=== PATIENT | female | born 1995 | race Caucasian/White ===

== ENCOUNTER 2023-08-21 20:04 | Emergency (ER) | payer OTHER, SELFPAY ==
[2023-08-21 20:23] VITALS: BP 135/93; PULSE 101; RESP 14; TEMP 37.1; O2SAT 98
--- NOTE | 2023-08-21 20:54 | ED.GENADULT ---
HPI - General Adult General Chief complaint: Unspecified Stated complaint: lymph node swelling/fever Time Seen by Provider: 08/21/23 20:10 Source: patient Mode of arrival: ambulatory Limitations: no limitations History of Present Illness HPI narrative: Patient is a 28 y/o female who presents to the ED with c/o swollen lymph nodes and fever. Patient reports she has noticed swelling to her lymph nodes, particularly her right sided neck since Wednesday. She then developed swelling and inflammation of her gums throughout the week. She was seen at urgent care yesterday, started on Augmentin for possible dental infection/ abscess. She followed up with her dentist today and was told she did not have a dental abscess. She then developed a sore throat and fever up to 101.1 degree F today. She took ibuprofen prior to arrival. Denies cough or cold symptoms. Denies sick contacts. Denies actual dental pain. Related Data Allergies Allergy/AdvReac Type Severity Reaction Status Date / Time metformin Allergy Gastrointestinal Verified 08/21/23 20:23 Upset sulfamethoxazole Allergy Hives Verified 08/21/23 20:23 [From Bactrim] trimethoprim [From Bactrim] Allergy Hives Verified 08/21/23 20:23 Review of Systems Review of Systems: CONSTITUTIONAL: See HPI. ENT: See HPI CARDIOVASCULAR: Denies chest pain. RESPIRATORY: Denies cough or dyspnea. GASTROINTESTINAL: Denies abdominal pain, nausea, vomiting All systems reviewed & are unremarkable except as noted in HPI and below Exam Narrative: GENERAL: Well appearing, morbidly obese with BMI of 50.9, non-toxic, in no acute distress. HEAD: Normocephalic, atraumatic. ENT: Mild dental disease. No obvious dental abscess. Upper gumline is mildly inflamed/swollen, erythematous. Scattered aphthous ulcers along right upper gum line. No fluctuance. Posterior pharynx is mildly erythematous, worse on right side. Tonsils are not enlarged, no exudate noted. No protrusion of tonsillar bed. Uvula is midline and non edematous. No stridor or trismus. NECK: Mild anterior cervical lymphadenopathy, worse on R. Soft, easily moveable, mildly tender. No posterior cervical lymphadenopathy. RESPIRATORY: Airway patent, respirations nonlabored. Clear to auscultation bilaterally, no rales, rhonchi, wheezing. CARDIOVASCULAR: Borderline tachycardic with regular rhythm without murmurs, rubs, or gallops ABDOMINAL: Soft, nontender, nondistended. Normoactive BS. MUSCULOSKELETAL: Moves all extremities. No gross deformities. SKIN: Warm, dry, normal color. NEURO: A&O X3. Speech clear. PSYCHIATRIC: Appropriate mood and affect. Normal interaction. Course Vital Signs Vital signs: Vital Signs Temperature 98.8 F 08/21/23 20:23 Pulse Rate 101 H 08/21/23 20:23 Respiratory Rate 14 08/21/23 20:23 Blood Pressure 135/93 H 08/21/23 20:23 Pulse Oximetry 98 08/21/23 20:23 Oxygen Delivery Room Air 08/21/23 20:23 Temperature 98.8 F 08/21/23 20:23 Pulse Rate 96 08/21/23 23:01 Respiratory Rate 17 08/21/23 23:01 Blood Pressure 123/74 08/21/23 23:01 Pulse Oximetry 97 08/21/23 23:01 Oxygen Delivery Room Air 08/21/23 20:23 Medical Decision Making [facility] Narrative Medical decision making narrative: Patient presented to the ED with lymphadenopathy, sore throat, fevers, gum inflammation. Patient mildly tachycardic upon arrival. Fluids initiated. Exam without evidence of obvious dental abscess, no fluctuance. She does have aphthous ulcers along right upper gum line. No signs of airway compromise or respiratory distress. No stridor. No features concerning for peritonsillar or retropharyngeal abscess on exam. Patient currently on Augmentin for possible dental infection. Advised patient she can continue this as she does have some degree of dental disease. Will also prescribe magic mouthwash. Recommended salt water rinses. Influenza, COVID, RSV, strep, mono testing negative. discu
[2023-08-21] MEDS: ACETAMINOPHEN 500 MG TABLET 1000 MG PO (21:38)
[2023-08-21 21:43] LABS: Strep Group A RT-PCR NOT DETECTED (Negative)
[2023-08-21 21:53] LABS: Influenza A QL RT-PCR Negative (Negative); Influenza B QL RT-PCR Negative (Negative); RSV RNA, RT-PCR Negative (Negative); SARS-CoV-2 RNA PCR Negative (Negative)
[2023-08-21 21:56] LABS: Monoscreen Negative (Negative); Negative Monotest Control Negative (Negative); Positive Monotest Control Positive (Positive)
[2023-08-21] MEDS: SODIUM CHLORIDE 0.9% IV 1,000 ML 999 ML IV CONT (22:08)
[2023-08-21 22:56] VITALS: BP 141/73; RESP 12; O2SAT 96
[2023-08-21 23:00] VITALS: BP 143/73; PULSE 94; RESP 20; O2SAT 96
[2023-08-21 23:01] VITALS: BP 123/74; PULSE 96; RESP 17; O2SAT 97
== END 2023-08-21 23:29 | disposition home or self-care (01) ==
PROVIDERS: Emergency Provider Physician Assistant
DX: R59.1 Generalized enlarged lymph nodes (principal); B34.9 Viral infection, unspecified; K12.0 Recurrent oral aphthae; Z20.822 Contact with and (suspected) exposure to COVID-19
CPT/HCPCS: 36415; 86308; 87637; 87651; 96360; 99284; A9270; J7030

== ENCOUNTER 2024-04-13 15:25 | Emergency (ER) | payer OTHER, SELFPAY ==
--- NOTE | ~2024-04-13 | XR_ITS ---
EXAM: XR foot LT min 3V DATE: 04/13/2024 15:48 HISTORY: pain dorsal Lt foot . COMPARISON: None available. FINDINGS: Normal mineralization. No fracture or dislocation. No lytic or blastic lesion. Mild degene rative change at the first MTP joint and talonavicular joint. Plantar enthesopathy. No erosion or per iosteal change. Soft tissues within normal limits. IMPRESSION: No acute osseous finding in the left foot. Reviewed, dictated and finalized at location [facility]
[2024-04-13 15:34] VITALS: BP 149/82; PULSE 92; RESP 16; TEMP 36.4; O2SAT 100
--- NOTE | 2024-04-13 16:09 | ED_ITS ---
HPI - Extremity Injury (Lower) General Chief Complaint: Extremity Injury, Lower Stated Complaint: Left Foot Pain Time Seen by Provider: 04/13/24 16:09 Source: patient, RN notes reviewed and old records reviewed Mode of arrival: ambulatory Limitations: no limitations History of Present Illness HPI Narrative: 29-year-old female presents to the [facility] with complaints of left foot pain. Symptoms started Wednesday. States that she was walking and felt a pop in the top of her foot. Tenderness to the distal this 3rd 4th metatarsal Related Data Home Medications ?Medication ?Instructions ?Recorded ?Confirmed ?Last Taken ?Type cholecalciferol (vitamin D3) 50 04/13/24 Unknown History mcg (2,000 unit) capsule cyanocobalamin (vitamin B-12) mcg 04/13/24 Unknown History 1,000 mcg sublingual tablet tirzepatide (weight loss) 5 mg/0.5 mg subcut 04/13/24 Unknown History mL subcutaneous pen injector (Zepbound) Allergies Allergy/AdvReac Type Severity Reaction Status Date / Time metformin Allergy Gastrointestinal Verified 04/13/24 15:34 Upset sulfamethoxazole (From Allergy Hives Verified 04/13/24 15:34 Bactrim) trimethoprim (From Bactrim) Allergy Hives Verified 04/13/24 15:34 Review of Systems 2 Review of Systems: All systems reviewed & are unremarkable except as noted in HPI and below Constitutional: Constitutional: Reports no additional constitutional complaints ENT: Reports system reviewed and no additional complaints, except as documented Cardiovascular: Cardiovascular: Reports no additional cardiovascular complaints, Denies chest pain and Denies dyspnea Respiratory: Respiratory: Reports no additional respiratory complaints, Denies chest congestion, Denies cough and Denies dyspnea Musculoskeletal: Musculoskeletal: Reports as per HPI Integumentary/Breasts: Skin/Breast: Reports system reviewed and no additional complaints, except as docu PMFSH Comments At the time of my signature, I reviewed and agree with the nursing past medical, surgical, social, and family history. There is no relevant family history pertinent to the patient complaint. Exam 2 Const: General: cooperative, healthy appearing, comfortable, no acute distress, well developed, alert and well nourished Nutritional Appearance: w ell nourished Orientation/consciousness: patient oriented x3 Limitations: no limitations HENMT: Head: normal to inspection Eyes: General: appearance normal, both eyes and all related structures A lignment and Position: alignment normal Neck: Neck: normal visual inspection, full ROM, no lymphadenopathy and no meningeal signs Chest: Chest palpation & inspection: normal inspection of the chest Resp: Effort & Inspection: normal respiratory effort and able to speak in complete sentences Cardio: Rate: regular rate Skin: General skin exam: normal color and no rashes or lesions noted Neuro: General: patient oriented x3, gait normal, moves all extremities and no meningeal signs Cognition (Neuro): normal cognition Speech: normal speech Gait exam (Neuro): Normal gait present Extrem: General: normal to inspection, full ROM, capillary refill normal and normal gait Left lower extremity: full ROM, normal capillary refill and foot Details: tenderness Location: of the dorsal foot Location: distally, toes with normal ROM and vascular exam Details: dorsalis pedis pulse present and normal capillary refill Ankle/foot/toe images: 1. Patient reports tenderness and a healing bruise. No swelling noted. No erythema. Psych: Appearance: grossly normal and well kempt Mental Status: mental status grossly normal Speech and movement: Normal speech and movement present and Clear speech present Affect: normal affect Attitude: cooperative Course Course Level of Care: Express Care Visit Vital Signs Vital signs: Vital Signs Temperature 97.5 F L 04/13/24 15:34 Pulse Rate 92 04/13/24 15:34 Respiratory Rate 16 04/13/24 15:34 Blood Pressure 149/82 H 04/13/24 15:34 Pulse Oximetry 100 04/13/24 15:34 Temperature 97.5 F L 04/13/24 15:34 Pulse Rate 92 04/13/24 15:34 Respiratory Rate 16 04/13/24 15:34 Blood Pressure 149/82 H 04/13/24 15:34 Pulse Oximetry 100 04/13/24 15:34 Reviewed MDM - Extremity Injury (Lower) MDM Narrative Medical decision making narrative: Patient sitting in exam room. Nontoxic vitals stable. Patient in no acute distress. Patient presents with 2 day history of left foot pain. X-ray negative. Discussed [id number] treatment, Patient appropriate for outpatient treatment with close follow-up. Podiatry phone numbers given Discharge instructions reviewed with patient, as well as provided in writing per nursing staff. The instructions also include specific and strict return/GO TO THE ER as well as f/u information. All questions have been answered, and the patient deny any further questions with discharge and discharge plan. Some parts of this dictation were generated by voice recognition software and may contain typographical and/or grammatical inaccuracies. Differential Diagnosis Differential diagnosis: Likely other (Foot contusion, foot fracture, arthritis, foot strain) Imaging Data Radiologist's impression: EXAM: XR foot LT min 3V DATE: 04/13/2024 15:48 HISTORY: pain dorsal Lt foot . COMPARISON: None available. FINDINGS: Normal mineralization. No fracture or dislocation. No lytic or blastic lesion. Mild degenerative change at the first MTP joint and talonavicular joint. Plantar enthesopathy. No erosion or periosteal change. Soft tissues within normal limits. IMPRESSION: No acute osseous finding in the left foot. Critical Care Time Critical Care Time Critical Care Time: No Discharge Plan Discharge Clinical Impression: Acute pain of left foot Patient Disposition: Home, Self-Care Condition: Stable Instructions: Antibiotic Form, Foot Sprain (ED) Additional Instructions: Your Xray did not show a fracture. Wear good supportive shoes at all times. Ice should be applied to help reduce swelling. It can be used for 20 to 30 minutes, every 2-3 hours while awake. Do not apply ice directly to your skin. You can alternate ibuprofen 600mg and Tylenol 650mg every 4 hours as needed for pain Please schedule a follow-up visit with your personal physician for further evaluation and treatment within 2 weeks especially if symptoms persist. Names of podiatrists had also been given 2, if symptoms continue or get worse it is recommended you follow-up For new or worsening symptoms go directly to the emergency room Patient Language: Peruvian Prescriptions: No Action cyanocobalamin (vitamin B-12) 1,000 mcg tablet, sublingual cholecalciferol (vitamin D3) 50 mcg (2,000 unit) capsule Zepbound 5 mg/0.5 mL pen injector SUBCUT Magazalea Mouthwash (Dr. Hernández) 120 mL suspension 5 ml PO Q6H Qty: 120 0RF Rx Instructions: diphenhydramine 12.5 mg/5 mL oral elixir 40 mL; Lidocaine Viscous 2 % mucosal solution 40 mL; Maalox 200 mg-200 mg-20 mg/5 mL oral suspension 40 mL; Per 120 mL Follow-up/Referrals: Juan Pablo,ROGERIO Longoria [Primary Care Provider] - Joe Pastrana Jr., CHRISM [Physician] - Cristobal Chavez DPM [Physician] - Stand Alone Forms: Work/School Release IP Time of Disposition: 16:14
== END 2024-04-13 16:18 | disposition home or self-care (01) ==
PROVIDERS: Emergency Provider Nurse Practitioner; PCP Physician Assistant
DX: M79.672 Pain in left foot (principal)
CPT/HCPCS: 73630; 99213; G0463